=== PATIENT | female | born 1985 | race Caucasian/White ===

== ENCOUNTER 2018-01-21 19:52 | Inpatient (IN) ==
[2018-01-21 20:40] LABS: Bilirubin,Urine Negative (Negative); Blood,Urine Negative (Negative); Clarity,Urine Clear (Clear); Color,Urine Yellow (Yellow); Glucose,Urine (UA) Normal (Normal); Ketones,Urine Trace mg/dL (Negative); Leukocyte Esterase,Urine Negative (Negative); Nitrite,Urine Negative (Negative); Protein,Urine Trace mg/dL (Neg-Trace); Specific Gravity,Urine > 1.030 (1.010-1.025); Urobilinogen,Urine Normal (Normal)
[2018-01-21 20:43] LABS: Bacteria,Urine None Seen per hpf (None-Few); Hyaline Casts,Urine None Seen per lpf (None-Few); RBC,Urine 0-3 per hpf (0-3); Squamous Epithelial Cell,Urine Many per lpf (None-Few)
[2018-01-21 20:44] LABS: Amphetamine Screen,Urine Negative ng/mL (Cutoff=1000); Barbiturate Screen,Urine Negative ng/mL (Cutoff=200); Benzodiazepines Screen,Urine Positive ng/mL (Cutoff=200); Cannabinoid Screen,Urine Negative ng/mL (Cutoff = 50); Cocaine Screen,Urine Negative ng/mL (Cutoff= 300); Opiate Screen,Urine Negative ng/mL (Cutoff=300); Phencyclidine Screen,Urine Negative ng/mL (Cutoff=25)
[2018-01-21 20:54] LABS: Basophils # 0.1 K/mcL (0.0-0.2); Basophils % 0.8 %; Eosinophils # 0.2 K/mcL (0.0-0.6); Hematocrit 42.9 % (35.3-44.9); Immature Granulocytes % 0.2 % (0-4); Lymphocytes # 3.8 K/mcL (0.6-4.6); Lymphocytes % 37.5 %; Mean Corpuscular HGB Conc 32.6 g/dL (31.6-35.5); Mean Corpuscular Volume 92.1 fL (83.0-100.0); Mean Platelet Volume 9.7 fL (9.4-12.4); Monocytes # 0.7 K/mcL (0.0-1.3); Monocytes % 6.4 %; Neutrophils # 5.4 K/mcL (1.6-8.9); Platelet Count 250 K/mcL (140-400); Red Blood Count 4.66 M/mcL (3.82-4.97); Red Cell Distribution Width 12.7 % (11.5-14.5); Segmented Neutrophils % 53.1 %
[2018-01-21 21:07] LABS: Acetaminophen < 1.0 mcg/mL (10-30); Ethanol < 10 mg/dL (0-10); Salicylate < 5.0 mg/dL (15.0-30.0)
[2018-01-21 21:22] LABS: BUN/Creatinine Ratio 17 (6-26); Blood Urea Nitrogen 17 mg/dL (6-20); Calcium 9.4 mg/dL (8.6-10.3); Carbon Dioxide 18 mEq/L (23-29); Chloride 112 mEq/L (98-107); Glucose 94 mg/dL (70-105); Osmolality,Calculated 291 (280-300); Potassium 3.5 mEq/L (3.5-5.1); Sodium 140 mEq/L (136-145); eGFR For African Americans > 60 (> 60); eGFR For Non-African Americans > 60 (> 60)
[2018-01-22] MEDS ORDERED: diazePAM 10 MG TABLET PO ONE (03:31)
[2018-01-22] MEDS ORDERED: traZODone 50 MG TABLET PO ONE (03:32)
[2018-01-22] MEDS ORDERED: Topiramate 100 MG TABLET PO ONE (03:32)
[2018-01-22] MEDS ORDERED: Ziprasidone 20 MG CAPSULE PO ONE (03:32)
[2018-01-22] MEDS ORDERED: Ibuprofen 600 MG TABLET PO ONE (04:17)
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
[2018-01-22] MEDS ORDERED: hydrOXYzine pamoate 25 MG CAPSULE PO PRN (11:58)
[2018-01-22] MEDS ORDERED: *HR* LORazepam 1 MG TABLET PO PRN (11:58)
[2018-01-22] MEDS ORDERED: Mag Hydrox/Al Hydrox/Simeth 30 ML UDC PO PRN (11:58)
[2018-01-22] MEDS ORDERED: *HR* LORazepam 2 MG/ML VIAL IM PRN (11:58)
[2018-01-22] MEDS ORDERED: Ibuprofen 400 MG TABLET PO PRN (11:58)
[2018-01-22] MEDS ORDERED: Haloperidol Lactate 5 MG/ML VIAL IM PRN (11:58)
[2018-01-22] MEDS: diazePAM 10 MG TABLET PO SCH ×2 (14:53→21:39)
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
[2018-01-22] MEDS ORDERED: Topiramate 100 MG TABLET PO SCH (18:00)
[2018-01-22] MEDS ORDERED: Ziprasidone 20 MG CAPSULE PO SCH (21:00)
[2018-01-22] MEDS: traZODone 50 MG TABLET PO SCH (21:37)
[2018-01-22] MEDS: Topiramate 100 MG TABLET PO SCH (21:39)
[2018-01-22] MEDS: Melatonin 3 MG TABLET PO SCH (21:58)
[2018-01-23] MEDS ORDERED: Topiramate 25 MG TABLET PO SCH (09:00)
[2018-01-23] MEDS: diazePAM 10 MG TABLET PO SCH ×3 (09:12→20:39)
[2018-01-23] MEDS: Multivit/Ca/Min/Fe/FA 1 TAB TABLET PO SCH (09:12)
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
[2018-01-23] MEDS: MOM Conc 10 ML UD.LIQ PO PRN (15:04)
[2018-01-23] MEDS: Ziprasidone 20 MG CAPSULE PO SCH (20:37)
[2018-01-23] MEDS: Topiramate 100 MG TABLET PO SCH (20:39)
[2018-01-23] MEDS: traZODone 50 MG TABLET PO SCH (20:39)
[2018-01-23] MEDS: Melatonin 3 MG TABLET PO SCH (21:07)
[2018-01-24] MEDS: Topiramate 25 MG TABLET PO SCH (08:56)
[2018-01-24] MEDS: diazePAM 10 MG TABLET PO SCH ×3 (08:57→20:55)
[2018-01-24] MEDS: Multivit/Ca/Min/Fe/FA 1 TAB TABLET PO SCH (08:57)
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
[2018-01-24] MEDS: MOM Conc 10 ML UD.LIQ PO PRN (17:40)
[2018-01-24] MEDS: Ziprasidone 20 MG CAPSULE PO SCH (20:54)
[2018-01-24] MEDS: Melatonin 3 MG TABLET PO SCH (20:55)
[2018-01-24] MEDS: traZODone 50 MG TABLET PO SCH (20:56)
[2018-01-24] MEDS: Topiramate 100 MG TABLET PO SCH (20:57)
[2018-01-25] MEDS: Multivit/Ca/Min/Fe/FA 1 TAB TABLET PO SCH (08:44)
[2018-01-25] MEDS: diazePAM 10 MG TABLET PO SCH ×3 (08:44→20:29)
[2018-01-25] MEDS: Topiramate 25 MG TABLET PO SCH (08:44)
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
[2018-01-25] MEDS: Ziprasidone 20 MG CAPSULE PO SCH (20:28)
[2018-01-25] MEDS: traZODone 50 MG TABLET PO SCH (20:29)
[2018-01-25] MEDS: Topiramate 100 MG TABLET PO SCH (20:30)
[2018-01-25] MEDS: Melatonin 3 MG TABLET PO SCH (20:30)
[2018-01-26] MEDS: Topiramate 25 MG TABLET PO SCH (08:39)
[2018-01-26] MEDS: Multivit/Ca/Min/Fe/FA 1 TAB TABLET PO SCH (08:40)
[2018-01-26] MEDS: diazePAM 10 MG TABLET PO SCH ×3 (08:40→20:01)
--- NOTE | 2018-01-26 13:01 | Psychiatry Progress Note ---
Date of Encounter: 01/26/18 Time of Encounter: 12:55 Subjective Interval history: Patient seen today case d/w treatment team and as per staff no behavioral problems, has been compliant with unit milieu . As per patient no side effects from zoloft which was started yesterday . states her parents visited yesterday and made me feel hopeless , when i called them they said she needs to pay them for gas and their meals when they come to visit me. they want me to pay them what they bring for snacks, so that has upset me, she has list of things on paper . she is c/o a lot about her parents and that i am too emotional. she states has constipation and asking for fiber . she has order of malox . patient has been given counselling about to focus on herself and start working on it , she acknowledged. she is depressed today denies suicidal , emotional and very dependant , asking what to do , how to do , should change job or not. REc Family meeting. Review of Systems Psychiatric: Reports: depression, suicidal ideation, hopelessness, mood swings Results - Vital Signs Vital Signs: Temp Pulse Resp BP Pulse Ox 97.8 F 84 16 119/79 97 01/26/18 09:00 01/26/18 09:00 01/26/18 09:00 01/26/18 09:00 01/22/18 09:37 Assessment and Plan (1) Suicidal thoughts Current visit: Yes Status: Acute Risks, benefits, side effects, alternatives discussed w/pt: Yes Patient agreeable to treatment: Yes (2) Bipolar disorder, current episode mixed, moderate Current visit: Yes Status: Acute Risks, benefits, side effects, alternatives discussed w/pt: Yes Patient agreeable to treatment: Yes (3) Borderline personality disorder Current visit: Yes Status: Chronic Risks, benefits, side effects, alternatives discussed w/pt: Yes Patient agreeable to treatment: Yes Consult Discharge Plan - Plan Referrals: [facility] [Outside] - 02/10/18 8:00 am (The above appointment is with Dr. Torres for outpatient psychiatric assessment and medication management services. You will also see Lexie Osuna on 02/18/2018 at 8:00am.) Psychiatry Exam - Constitutional Vitals: Temp Pulse Resp BP Pulse Ox 97.8 F 84 16 119/79 97 01/26/18 09:00 01/26/18 09:00 01/26/18 09:00 01/26/18 09:00 01/22/18 09:37 General appearance: age & developmentally appropriate, unkempt - Musculoskeletal Gait: normal Station: other Strength & Tone: normal for patient - Psychiatric Patient Orientation: Yes Person, Yes Time, Yes Place Level of alertness: Alert Behavior: cooperative, withdrawn Psychomotor activity: Slowed Eye Contact: Maintains Eye Contact Mood Description: Depressed, Anxious Affect description: congruent with mood Speech Volume: Soft/Quiet Speech pattern: normal rate, normal rhythm, normal tone, coherent Language & Vocabulary: consistent with education Thought Process: Intact Thought Content: Yes Intact Attention Span Ability: Unable to Sustain Attention Memory Description: Grossly Intact Patient Reliability: Reliable Historian Fund of knowledge: Yes average Intelligence Estimate: Average Judgment: Limited Insight: Partial
[2018-01-26] MEDS: Melatonin 3 MG TABLET PO SCH (20:01)
[2018-01-26] MEDS: traZODone 50 MG TABLET PO SCH (20:01)
[2018-01-26] MEDS: Ziprasidone 20 MG CAPSULE PO SCH (20:01)
[2018-01-26] MEDS: Topiramate 100 MG TABLET PO SCH (20:02)
[2018-01-27] MEDS: diazePAM 10 MG TABLET PO SCH ×3 (08:49→21:02)
[2018-01-27] MEDS: Multivit/Ca/Min/Fe/FA 1 TAB TABLET PO SCH (08:49)
[2018-01-27] MEDS: Topiramate 25 MG TABLET PO SCH (08:49)
--- NOTE | 2018-01-27 13:45 | Psychiatry Progress Note ---
Date of Encounter: 01/27/18 Time of Encounter: 13:20 Subjective Interval history: Patient seen today ,case d/w treatment team , patient remains same she has been focused on every one else and not her self, she is c/o abouy her parents and nursing staff. she has poor coping skills and needs continued counselling. she is feeling depress because no groups today , i feel like crawling in bed , i feel my depression is worse. she is denying any side effects. at present her axis 2 and her thought process makes her feel more depress and anhedonia, she is writing journal mostly about her feelings and how her parents are treating her. will dc zolft and start wellbutrin sr 150 mg today and increase to 300 mg . she agreed with plan states has taken it when teenager and it helped. Review of Systems Psychiatric: Reports: depression, suicidal ideation, hopelessness, mood swings Results - Vital Signs Vital Signs: Temp Pulse Resp BP Pulse Ox 97.4 F L 83 16 116/73 97 01/27/18 09:00 01/27/18 09:00 01/27/18 09:00 01/27/18 09:00 01/22/18 09:37 Assessment and Plan (1) Suicidal thoughts Current visit: Yes Status: Acute Risks, benefits, side effects, alternatives discussed w/pt: Yes Patient agreeable to treatment: Yes (2) Bipolar disorder, current episode mixed, moderate Current visit: Yes Status: Acute Risks, benefits, side effects, alternatives discussed w/pt: Yes Patient agreeable to treatment: Yes (3) Borderline personality disorder Current visit: Yes Status: Chronic Risks, benefits, side effects, alternatives discussed w/pt: Yes Patient agreeable to treatment: Yes Consult Discharge Plan - Plan Referrals: [facility] [Outside] - 02/10/18 8:00 am (The above appointment is with Dr. Torres for outpatient psychiatric assessment and medication management services. You will also see Lexie Osuna on 02/18/2018 at 8:00am.) Psychiatry Exam - Constitutional Vitals: Temp Pulse Resp BP Pulse Ox 97.4 F L 83 16 116/73 97 01/27/18 09:00 01/27/18 09:00 01/27/18 09:00 01/27/18 09:00 01/22/18 09:37 General appearance: age & developmentally appropriate - Musculoskeletal Gait: normal Station: other Strength & Tone: normal for patient - Psychiatric Patient Orientation: Yes Person, Yes Time, Yes Place Level of alertness: Alert Behavior: cooperative, talkative Psychomotor activity: Normal Eye Contact: Maintains Eye Contact Mood Description: Depressed, Anxious Affect description: congruent with mood, dysphoric Speech Volume: Soft/Quiet Speech pattern: coherent Language & Vocabulary: consistent with education Thought Process: Logical Thought Content: Yes Preoccupation Attention Span Ability: Capable of Focused Attention Memory Description: Grossly Intact Patient Reliability: Reliable Historian Fund of knowledge: Yes average Intelligence Estimate: Average Judgment: Limited Insight: Partial
[2018-01-27] MEDS: BuPROPion SR (12 HR) 150 MG TABLET PO SCH (14:26)
[2018-01-27] MEDS: traZODone 50 MG TABLET PO SCH (21:02)
[2018-01-27] MEDS: Ziprasidone 20 MG CAPSULE PO SCH (21:02)
[2018-01-27] MEDS: Topiramate 100 MG TABLET PO SCH (21:02)
[2018-01-27] MEDS: Melatonin 3 MG TABLET PO SCH (21:02)
[2018-01-28] MEDS: Multivit/Ca/Min/Fe/FA 1 TAB TABLET PO SCH (08:36)
[2018-01-28] MEDS: diazePAM 10 MG TABLET PO SCH (08:37)
[2018-01-28] MEDS: BuPROPion SR (12 HR) 150 MG TABLET PO SCH (08:37)
[2018-01-28] MEDS: Topiramate 25 MG TABLET PO SCH (08:38)
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
[2018-01-28 10:57] VITALS: BP 126/56
[2018-01-28] MEDS ORDERED: BuPROPion SR (12 HR) 150 MG TABLET PO SCH (21:00)
== END 2018-01-28 12:00 | disposition home or self-care (01) | DRG 885 ==
LOC: EMEROO 19:52 → SUATTDRO 01-22 11:10 → 1ANU 01-22 11:10
PROVIDERS: ADMIT Psychiatry & Neurology Forensic Psychiatry; ATTEND Psychiatry & Neurology Psychiatry